=== PATIENT | male | born 1995 | race African-American/Black ===

== ENCOUNTER 2023-10-09 11:40 | Emergency (ER) | payer SELFPAY ==
[~2023-10-09] VITALS: Ht 185.4 cm; Wt 67.2 kg
[2023-10-09 11:44] VITALS: BP 146/83; PULSE 87; RESP 18; TEMP 98.5; O2SAT 100
[2023-10-09] MEDS ORDERED: AUG875T PO (12:39)
== END 2023-10-09 12:41 | disposition home or self-care (01) ==
LOC: ER 11:40
DX: H66.91 Otitis media, unspecified, right ear (principal); F12.90 Cannabis use, unspecified, uncomplicated